=== PATIENT | female | born 1960 | race Asian ===

== ENCOUNTER 2017-02-21 08:47 | Outpatient (CLI) | payer BC | END 2017-02-21 10:00 | disposition home or self-care (01) | LOC: MAMMO 08:47 | DX: Z12.31 Encounter for screening mammogram for malignant neoplasm of breast (principal) | CPT/HCPCS: G0202-TC ==

== ENCOUNTER 2018-03-06 15:39 | Outpatient (CLI) | payer BC | END 2018-03-06 21:46 | disposition home or self-care (01) | LOC: MAMMO 15:39 | DX: Z12.31 Encounter for screening mammogram for malignant neoplasm of breast (principal) ==

== ENCOUNTER 2018-12-24 00:30 | Emergency (ER) | payer BC ==
[~2018-12-24] VITALS: Ht 162.6 cm; Wt 72.6 kg
[2018-12-24 01:48] LABS: PLATELET COUNT 342 K/uL (152-353)
[2018-12-24 01:57] LABS: POTASSIUM 3.8 mmol/L (3.6-5.2)
[2018-12-24 02:12] VITALS: BP 131/71; TEMP 97.7
== END 2018-12-24 02:16 | disposition home or self-care (01) ==
LOC: ED 00:30
PROVIDERS: Internal Medicine
DX: R19.7 Diarrhea, unspecified (principal); R11.0 Nausea; B34.9 Viral infection, unspecified
CPT/HCPCS: 36415; 80048; 85027; 99283

== ENCOUNTER 2019-03-18 09:59 | Outpatient (CLI) | payer BC | END 2019-03-18 19:19 | disposition home or self-care (01) | LOC: MAMMO 09:59 | DX: Z12.31 Encounter for screening mammogram for malignant neoplasm of breast (principal) ==

== ENCOUNTER → 2020-11-21 | Outpatient (CLI) | payer BC, OTHER | LOC: INF 09:03 | PROVIDERS: ATTEND Internal Medicine | DX: Z23 Encounter for immunization (principal) | CPT/HCPCS: 96372 ==

== ENCOUNTER 2020-12-15 09:20 | Outpatient (CLI) | payer BC, OTHER | END 2020-12-15 23:59 | disposition home or self-care (01) | LOC: INF 09:20 | PROVIDERS: ATTEND Internal Medicine | DX: Z23 Encounter for immunization (principal) | CPT/HCPCS: 96372 ==

== ENCOUNTER 2022-11-09 14:17 | Outpatient (CLI) | payer BC | END 2022-11-09 18:58 | disposition home or self-care (01) | LOC: MAMMO 14:17 | PROVIDERS: ATTEND Internal Medicine | DX: Z12.31 Encounter for screening mammogram for malignant neoplasm of breast (principal); Z13.820 Encounter for screening for osteoporosis; N95.8 Other specified menopausal and perimenopausal disorders ==

== ENCOUNTER 2023-05-18 01:59 | Observation (INO) | payer BC ==
[2023-05-18] VITALS (13 sets, daily range): BP systolic 96–119; BP diastolic 43–81; TEMP 98.3–101.2; Ht 162.6 cm; Wt 76.7 kg
[~2023-05-18] VITALS: Ht 162.6 cm; Wt 76.7 kg
[2023-05-18 05:40] LABS: PLATELET COUNT 272 K/uL (152-353)
[2023-05-18 05:45] LABS: POTASSIUM 3.6 mmol/L (3.6-5.2)
[2023-05-18] MEDS ORDERED: CLON0.1T16 PO (12:13)
[2023-05-18] MEDS ORDERED: HYDR200T3 PO (12:14)
[2023-05-18] MEDS ORDERED: CETI10TA PO (12:15)
[2023-05-18] MEDS ORDERED: MULTIVITAMIN WO1 TA1 PO (12:16)
[2023-05-18] MEDS ORDERED: PROGESTERONE100 M1 PO (12:30)
[2023-05-19] VITALS: BP 93/35; TEMP 98.8
[2023-05-19 04:00] VITALS: BP 100/52; TEMP 98.1
[2023-05-19 08:00] VITALS: BP 114/55; TEMP 98.5
[2023-05-19 08:38] LABS: PLATELET COUNT 223 K/uL (152-353)
[2023-05-19 09:07] LABS: POTASSIUM 3.3 mmol/L (3.6-5.2)
[2023-05-19 16:00] VITALS: BP 122/71; TEMP 98.8
[2023-05-19 19:59] VITALS: BP 115/51; TEMP 98.7
[2023-05-19 23:41] VITALS: BP 130/74; TEMP 98.8
[2023-05-20 03:50] VITALS: BP 117/68; TEMP 98.6
[2023-05-20 05:05] LABS: PLATELET COUNT 261 K/uL (152-353)
[2023-05-20 08:00] VITALS: BP 113/47; TEMP 98
[2023-05-20 12:01] VITALS: BP 132/46; TEMP 97.7
[2023-05-20 16:09] VITALS: BP 115/68; TEMP 97.8
== END 2023-05-20 16:57 | disposition home or self-care (01) ==
LOC: ED 01:59 → MED/SURG 06:10
PROVIDERS: Family Medicine; ADMIT Physician Assistant; ATTEND Internal Medicine Endocrinology, Diabetes & Metabolism
DX: K52.89 Other specified noninfective gastroenteritis and colitis (principal); R55 Syncope and collapse; N17.8 Other acute kidney failure; R10.9 Unspecified abdominal pain; M35.00 Sjogren syndrome, unspecified; E87.1 Hypo-osmolality and hyponatremia
CPT/HCPCS: 36415; 80048; 80053; 85027; 87324; 87449; 96360; 96361; 96365; 96367; 99221; 99284; G0378; J0744; J3490

== ENCOUNTER 2023-06-20 14:17 | Outpatient (CLI) | payer BC ==
[~2023-06-20 14:17] MED LIST: CETI10TA PO; CLON0.1T16 PO; HYDR200T3 PO; MULTIVITAMIN WO1 TA1 PO; PROGESTERONE100 M1 PO
== END 2023-06-20 19:27 | disposition home or self-care (01) ==
LOC: RESP 14:17
PROVIDERS: ATTEND Nurse Practitioner Family
DX: M35.05 Sjogren syndrome with inflammatory arthritis (principal); R06.09 Other forms of dyspnea; R53.83 Other fatigue; Z79.899 Other long term (current) drug therapy